=== PATIENT | female | born 1985 | race Caucasian/White ===

== ENCOUNTER → 2018-01-23 | Outpatient (REF) | payer BC | LOC: M LAB REF 16:53 | DX: Z72.51 High risk heterosexual behavior (principal) | CPT/HCPCS: 87070 ==

== ENCOUNTER → 2018-11-02 | Outpatient (CLI) | payer BC ==
[2018-11-02 18:53] LABS: CHOLESTEROL LEVEL 212 MG/DL (<200); CHOLESTEROL RISK RATIO 3.212 (<5); HDL CHOLESTEROL 66 MG/DL (>40); LDL CHOLESTEROL 131 MG/DL (<100); NON-HDL-C 146 MG/DL; TRIGLYCERIDES LEVEL 73 MG/DL (<150)
[2018-11-02 19:41] LABS: CHLAMYDIA DNA AMPLIFICATION NEGATIVE (NEGATIVE); GC DNA AMPLIFICATION NEGATIVE (NEGATIVE)
[2018-11-03 11:10] LABS: HEPATITIS B SURFACE ANTIGEN NEGATIVE (NEGATIVE)
[2018-11-03 11:37] LABS: HEPATITIS B CORE ANTIBODY IGM NEGATIVE (NEGATIVE)
[2018-11-03 11:38] LABS: HIV 1&2 SCREEN CENTAUR NEGATIVE (NEGATIVE)
[2018-11-03 11:39] LABS: HEPATITIS A ANTIBODY IGM NEGATIVE (NEGATIVE)
== END ==
LOC: M SMT 11:39
PROVIDERS: ATTEND Physician Assistant
DX: A60.04 Herpesviral vulvovaginitis (principal); Z13.220 Encounter for screening for lipoid disorders